=== PATIENT | male | born 1960 | race Caucasian/White ===

== ENCOUNTER 2020-04-18 09:10 | Outpatient (REF) | payer OTHER, SELFPAY | END 2020-04-18 09:11 | disposition home or self-care (01) | LOC: HO.WFDLDS 09:10 | PROVIDERS: PCP Internal Medicine; Visit Provider Internal Medicine | DX: Z20.828 Contact with and (suspected) exposure to other viral communicable diseases (principal) | CPT/HCPCS: C9803; U0003 ==

== ENCOUNTER 2020-05-11 10:33 | Outpatient (REF) | payer OTHER, SELFPAY | END 2020-05-11 10:34 | disposition home or self-care (01) | LOC: HO.WFDLDS 10:33 | PROVIDERS: PCP Internal Medicine; Visit Provider Internal Medicine | DX: Z20.822 Contact with and (suspected) exposure to COVID-19 (principal) | CPT/HCPCS: 36415; C9803; U0003 ==